=== PATIENT | male | born 1995 ===

== ENCOUNTER 2018-12-26 04:05 | Emergency (ER) | payer SELFPAY ==
--- NOTE | 2018-12-26 05:05 | C.PDOC ---
History Of Present Illness 23 year old male is brought to the ED by EMS for evaluation. As per EMS patient was picked up from a taxi where patient fell sleep and motor bus driver called EMS. Patient was given narcan 2 mg by EMS. Patient denies SI/HI, hallucinations, other medical complaints at this time. Time Seen by Provider: 12/26/18 04:34 Chief Complaint (Nursing): Substance Abuse History Per: Patient, EMS History/Exam Limitations: intoxication Onset/Duration Of Symptoms: Hrs Current Symptoms Are (Timing): Still Present Suicide/Self Injury Attempted (Context): None Associated Symptoms: denies: Depression, Suicidal Thoughts, Suicidal Plan Recent travel outside of the [place]: No Additional History Per: Patient, EMS Past Medical History Reviewed: Historical Data, Nursing Documentation, Vital Signs Vital Signs: Last Vital Signs Temp 98 F 12/26/18 04:13 Pulse 109 H 12/26/18 04:13 Resp 20 12/26/18 04:13 BP 149/102 H 12/26/18 04:13 Pulse Ox 98 12/26/18 04:13 - Medical History PMH: No Chronic Diseases Surgical History: No Surg Hx Family History: States: Unknown Family Hx - Social History Hx Alcohol Use: Yes Hx Substance Use: Yes - Immunization History Hx Tetanus Toxoid Vaccination: No Hx Influenza Vaccination: No Hx Pneumococcal Vaccination: No Review Of Systems Constitutional: Negative for: Fever, Chills Cardiovascular: Negative for: Chest Pain Respiratory: Negative for: Shortness of Breath Gastrointestinal: Negative for: Nausea, Vomiting, Abdominal Pain Skin: Negative for: Rash Psych: Negative for: Depression, Suicidal ideation Physical Exam - Physical Exam Appears: Non-toxic, No Acute Distress (ALERT, AWAKE, AMBULATORY) Skin: Normal Color, Warm, Dry Head: Atraumatic, Normacephalic Eye(s): bilateral: Normal Inspection Neck: Normal ROM, Supple Chest: Symmetrical Cardiovascular: Rhythm Regular Respiratory: Normal Breath Sounds, No Rales, No Rhonchi, No Wheezing Gastrointestinal/Abdominal: Soft, No Tenderness, No Guarding, No Rebound Extremity: Normal ROM, No Tenderness, No Swelling Extremity: Bilateral: Atraumatic Neurological/Psych: Oriented x3, Normal Speech, Normal Cognition Gait: Steady ED Course And Treatment O2 Sat by Pulse Oximetry: 98 (ON RA) Pulse Ox Interpretation: Normal Progress Note: Upon examination patient is requesting to stay in ED untile the morning. Patient is seen ambulating in the ED with a steady gait, breathing with no difficulty and in NAD. Patient was D/C home. Disposition Counseled Patient/Family Regarding: Diagnosis, Need For Followup - Disposition Disposition: HOME/ ROUTINE Disposition Time: 06:17 Condition: STABLE Additional Instructions: RECOMMEND DETOX TAKE MEDICATIONS DIRECTED RETURN TO ER IF IF WORSE Instructions: Drug Abuse and Drug Addiction (DC) Forms: [employer] (I[place]ic) - Clinical Impression Clinical Impression: Drug abuse - PA / FIELD HUMAN RESOURCES MANAGER / Resident Statement MD/DO has reviewed & agrees with the documentation as recorded. - Scribe Statement The provider has reviewed the documentation as recorded by the Scribe Fidencio Paez All medical record entries made by the Scribe were at my direction and personally dictated by me. I have reviewed the chart and agree that the record accurately reflects my personal performance of the history, physical exam, medical decision making, and the department course for this patient. I have also personally directed, reviewed, and agree with the discharge instructions and disposition.
[2018-12-26 06:32] VITALS: BP 112/86; PULSE 82; RESP 16; TEMP 98.3; O2SAT 100
== END 2018-12-26 06:32 | disposition home or self-care (01) ==
LOC: C.ER 04:05
DX: F19.10 Other psychoactive substance abuse, uncomplicated (principal)